=== PATIENT | male | born 1980 | race Caucasian/White ===

== ENCOUNTER 2023-09-02 14:56 | Outpatient (AMB) | payer BC, SELFPAY ==
[2023-09-02 15:18] VITALS: BP 132/74; PULSE 78; O2SAT 98; BMI 27.4
--- NOTE | 2023-09-02 15:18 | A.OFFPC_ITS ---
Vital Signs 09/02/23 15:18 Height 5 ft 10 in Weight 191 lb 3 oz BMI 27.4 BP 132/74 Blood Pressure Location Lt brachial Position Sitting Pulse 78 Pulse Source Pulse Oximeter Pulse Oximetry (%) 98 Oxygen Delivery Method Room Air Intake Visit Reasons: top lift nailer, requesting physical Intake Note: Patient is here as a new patient, looking to establish care. Allergies No Known Allergies Allergy (Verified 09/02/23 15:20) Tobacco use date assessed: 09/02/23 Dental Screening Dental Screen Date: 09/02/23 Did you have a dental visit in the last 12 months?: Yes Did you have a dental problem in the last 6 months where you did not have access to dental care?: No Was dental information given to patient?: Patient has dentist HPI top lift nailer, requesting physical HPI Details New Patient? ?? Prior PCP:Dutch Perry Last office visit/CPE:? None x 20 yrs Acute issue(s):? Est Care ?? PMHx:? Kidney stones. SurgHx:? None FHx:? Dad: Colon Polyps. Brother: Polyps MGF: CAD, [place] pGF: CardioPulm Fibrosis SocHx:? Nonsmoker, EtOH 2 Beers a week/ Occassionally. No drugs PFSH Medical History (Updated 09/02/23 @ 15:55 by Kev Nelson) Kidney stones Surgical History (Updated 09/02/23 @ 15:23 by Bridget Morejon CMA) No pertinent past surgical history Family History (Updated 09/02/23 @ 15:26 by Bridget Morejon CMA) Father Colorectal polyps Brother Colorectal polyps Social History (Updated 09/02/23 @ 15:30 by Bridget Morejon CMA) Household Members: Children Both parents involved: No Caregiver staying overnight: No Housing: House Are you a primary acute care nurse practitioner to a significant other at home: Yes Do you presently have visiting nurse or other home services: No Alcohol intake: current Alcohol intake frequency: other Alcohol type: beer and wine Patient Tobacco Use Status: Never used Tobacco e-Cigarette/Vaping Use: Never Used Special deni needs: No service: No Current occupational status: employed Current occupation: PRODUCTION OPERATIONS INSPECTOR of operations Cognitive needs: No Hearing needs: No Vision needs: Yes (Patient wears glasses.) Questionnaire PHQ-9 Over the last 2 weeks, how often have you been bothered by any of the following problems? 1. Little interest or pleasure in doing things: not at all 2. Feeling down, depressed, or hopeless: not at all 3. Trouble falling or staying asleep, or sleeping too much: not at all 4. Feeling tired or having little energy: not at all 5. Poor appetite or overeating: not at all 6. Feeling bad about yourself - or that you are a failure or have let yourself or your family down: not at all 7. Trouble concentrating on things, such as reading the newspaper or watching television: not at all 8. Moving or speaking so slowly that other people could have noticed. Or the opposite - being so fidgety or restless that you have been moving around a lot more than usual: not at all 9. Thoughts that you would be better off or of hurting yourself in some way: not at all Total score: 0 Depression Screening Interpretation: Negative Depression Screening Done: Yes 09304 - PHQ-9 Billing: Yes Source: Developed by Drs. Maximo Solorzano, Vijaya Clark, Mo Mccann and colleagues, with an educational shyann from [employer]. Thrive Questionnaire Date Thrive assessed: 09/02/23 I am a: Patient What is your living situation today?: I have a steady place to live Within the past 12 months, did the food you bought not last and you didn't have the money to get more?: Never true Within the past 12 months, did you worry whether your food would run out before you got money to buy more?: Never true Do you have trouble paying for medicines?: No Do you have trouble getting transportation to medical appointments?: No Do you have trouble paying your heating and electricity bill?: No Do you have trouble taking care of your child, family member or friend?: No Do you have trouble with day-to-day activities such as bathing, preparing meals, shopping, managing finances, etc.?: No Are you currently unemployed and looking for a job?: No Are you interested in more education?: No THRIVE Score: 0 MARIS-7 AMB Questionnaire MARIS-7 Date MARIS - 7 assessed: 09/02/23 Feeling nervous, anxious, or on edge: 1 = Several days Not being able to stop or control worryin = Not at all Worrying too much about different things: 0 = Not at all Trouble relaxin = Not at all Being so restless that it is hard to sit still: 0 = Not at all Becoming easily annoyed or irritable: 0 = Not at all Feeling afraid as if something awful might happen: 0 = Not at all Total MARIS-7 score (0-4 normal; 5-9 mild; 10-14 moderate; 15-21 severe): 1 Source: Developed by Drs. Maximo Solorzano, Vijaya Clark, Mo Mccann and colleagues, with an educational shyann from [employer]. MARIS-7 Assessment Billing MARIS-7 Assessment Tool: MARIS-7 Assessment 54018 Review of Systems Const Denies chills, Denies fatigue, Denies fever(s), Denies headache(s) and Denies weakness Eyes Denies change in vision ENT Denies dizziness and Denies headache(s) Card Denies chest pain, Denies lightheadedness, Denies dyspnea and Denies other (Palpitations) Resp Denies cough, Denies dyspnea, Denies wheezing and Denies other ( shortness of breath) GI Denies abdominal pain, Denies melena, Denies hematochezia, Denies change in bowel habits, Denies dyspepsia and Denies nausea Denies hematuria and Denies dysuria Musc Denies numbness and Denies tingling Skin/Breast Denies rash, Denies unusual bruising and Denies wounds Neuro Denies dizziness, Denies headache(s), Denies numbness, Denies Sensory deficit (Neuro), Denies tingling, Denies paresthesias and Denies weakness Psych Denies anxiety and Denies depression Endo Denies fatigue Noe/Lymph Denies easy bleeding and Denies easy bruising Aller/Immun Denies wheezing Physical exam (Primary Care) BMI result Body Mass Index 27.4 Tobacco/Smoking Status: Tobacco use Status Tobacco use date assessed 09/02/23 09/02/23 15:26 Patient Tobacco Use Status Never used Tobacco 09/02/23 15:30 e-Cigarette/Vaping Use Never Used 09/02/23 15:30 Depression Screening Interpretation: Negative Const General: no acute distress and well developed Nutritional Appearance: well nourished Orientation/consciousness: patient oriented x3 HENMT Head: Yes normocephalic and Yes atraumatic Ears: hearing grossly normal bilaterally and TM's normal bilaterally General nose exam: Normal external nose present and Normal nares present Mouth: Normal oral and palatal mucosa present and moist mucous membranes Teeth and gingiva: dentition normal Throat: Yes posterior oropharynx normal Eyes General: appearance normal, both eyes and all related structures Pupils: Equal, round and reactive pupils present EOM: EOMs intact bilaterally Neck Neck: Yes normal visual inspection, Yes no lymphadenopathy and Yes trachea midline Thyroid: Thyroid normal Carotids: no bruits Lymphatic: no lymphadenopathy noted Chest Chest palpation & inspection: normal inspection of the chest Resp Effort & Inspection: normal respiratory effort Auscultation: clear to auscultation bilaterally Cardio Rate: regular rate Rhythm: regular rhythm Heart sounds: S1 normal heart sound present, S2 normal heart sound present, no gallops, no murmurs and no rubs Bruits: no abdominal aortic bruits and no carotid bruits GI Palpation (GI): No Abdominal aortic bruit present, Soft to palpation, nontender, No hepatosplenomegaly present and No Rebound tenderness present Auscultation: normal bowel sounds General: Yes no CVA tenderness Back/Spine/Pelvis Back: no CVA tenderness Cervical Spine: cervical ROM normal and No Cervical spine tenderness Thoracic/Lumbar Spine: thoraco-lumbar ROM normal, No pain with thoraco-lumbar ROM, No thoracic spinal tenderness and No lumbar spinal tenderness Skin Other: L side of his nose 1/2 cm rounded, fleshy neoplasm L forearm melanotic lesion with irregular borders Lesions: lesions noted Rashes: no rashes Trauma: no lacerations or abrasions Wounds: no wounds Nails: normal Neuro General: patient oriented x3 and gait normal Cranial nerves: Yes Equal, round and reactive pupils present Cognition (Neuro): normal cognition Gait exam (Neuro): Normal gait present Motor exam (neuro): 5/5 motor strength present throughout Sensory Exam: No Sensory deficit (Neuro) Deep tendon reflexes (DTR's): Right patellar reflex intensity grade: 2+ and Left patellar reflex intensity grade: 2+ Extrem General: Yes normal to inspection and No edema Psych Appearance: grossly normal Affect: normal affect Attitude: cooperative Thought process: Normal thought process present Assessment and Plan Assessment & Plan (1) Adult general medical exam: Code(s): Z00.00 - Encounter for general adult medical examination without abnormal findings Plan: Patient?presents?as?new?patient?to?establish?care?and?for?complete?physical?exam Encouraged?healthy?diet?with?active?lifestyle?and?plenty?of?exercise (2) Change in hearing: Code(s): H91.90 - Unspecified hearing loss, unspecified ear Plan: May?have?subtle?hearing?loss?and?patient?notes?some?changes Will?refer?to?audiology (3) Neoplasm of uncertain behavior of skin: Code(s): D48.5 - Neoplasm of uncertain behavior of skin Plan: Rounded?fleshy?lump/neoplasm?at?left?side?of?nose Also?melanotic?lesion?with?irregular?borders?at?left?arm Referred?to?dermatology (4) Screening for prostate cancer: Code(s): Z12.5 - Encounter for screening for malignant neoplasm of prostate Plan: Check?PSA Orders: Orders Comprehensive Jamul. Panel Fast Today Z00.00 - Encounter for general adult medical examination without abnormal findings Lipid Panel Today Z00.00 - Encounter for general adult medical examination without abnormal findings UA and rflx microscopic Today Z00.00 - Encounter for general adult medical examination without abnormal findings AMB Hemoglobin A1c Today Z13.9 - Encounter for screening, unspecified Microalbumin, Random (w Creat) Today I10 - Essential (primary) hypertension Prostate Specific Antigen Scr Today Z12.5 - Encounter for screening for malignant neoplasm of prostate TSH reflex Free T4 Today Z00.00 - Encounter for general adult medical examination without abnormal findings Referrals Dermatology Referral D48.5 - Neoplasm of uncertain behavior of skin Audiology Referral H91.90 - Unspecified hearing loss, unspecified ear Coding Level of Care Code New Pt Level 3 (71844) New Pt Prev Care 40-64y(64947) Diagnoses Adult general medical exam Z00.00 Change in hearing H91.90 Neoplasm of uncertain behavior of skin D48.5 Screening for prostate cancer Z12.5 Additional Codes MARIS-7 Assessment Billing - MARIS-7 Assessment Tool: MARIS-7 Assessment 74550 ([id number])
== END 2023-09-02 15:56 | disposition home or self-care (01) ==
PROVIDERS: PCP Family Medicine; Visit Provider Family Medicine
DX: Z00.00 Encounter for general adult medical examination without abnormal findings (principal); H91.93 Unspecified hearing loss, bilateral; D48.5 Neoplasm of uncertain behavior of skin; Z12.5 Encounter for screening for malignant neoplasm of prostate
CPT/HCPCS: 99386

== ENCOUNTER 2024-04-10 15:07 | Outpatient (AMB) | payer BC, SELFPAY ==
[2024-04-10 15:12] VITALS: BP 138/88; PULSE 80; O2SAT 98; BMI 28.3
--- NOTE | 2024-04-10 15:12 | A.OFFVIS_ITS ---
Vital Signs 04/10/24 15:12 Height 5 ft 10 in Weight 197 lb 8.547 oz BMI 28.3 BP 138/88 Blood Pressure Location Rt brachial Position Sitting Pulse 80 Pulse Source Pulse Oximeter Pulse Oximetry (%) 98 Oxygen Delivery Method Room Air Intake Visit Reasons: Colonoscopy Screening Intake Note: NEW PATIENT Reason; Screening. Strong FMHx (Paternal) CRC Prior hx of colo/egd? N Concerns/Questions? No significant concerns per pt. Allergies No Known Allergies Allergy (Verified 04/10/24 15:12) HPI HPI Colonoscopy Screening: Details: 43 year old? male with no significant past medical history is here today for pre colonoscopy screening.? Patient was sent to us by his PCP.? This is his first colonoscopy screening.? Patient denies any gastrointestinal symptoms in the past or at present.? Family history of tubular adenoma no history of CRC. Patient's brother had polyps at age 43 as well as his dad.? Patient never had anesthesia in the past.? Negative for history of sleep apnea.? Denies any history of cardiac, renal, pulmonary, or hepatic disease.?? No history of infectious? diseases like hepatitis A, B, C, HIV or tuberculosis.? Patient is not on any anticoagulation [facility] Medical History Kidney stones Surgical History No pertinent past surgical history Family History Father Colorectal polyps Brother Colorectal polyps Social History Household Members: Children Both parents involved: No Caregiver staying overnight: No Housing: House Are you a primary wound care physician to a significant other at home: Yes Do you presently have visiting nurse or other home services: No Alcohol intake: current Alcohol intake frequency: other Alcohol type: beer and wine Patient Tobacco Use Status: Never used Tobacco e-Cigarette/Vaping Use: Never Used Special deni needs: No service: No Current occupational status: employed Current occupation: [employer] of operations Cognitive needs: No Hearing needs: No Vision needs: Yes (Patient wears glasses.) Review of Systems Const Denies weight gain and Denies weight loss ENT Reports no additional complaints, Denies dysphagia and Denies odynophagia Card Reports no additional complaints Resp Reports no additional complaints GI Denies abdominal pain, Denies belching, Denies melena, Denies bloating, Denies change in bowel habits, Denies dysphagia, Denies excessive flatus, Denies dyspepsia, Denies heartburn, Denies diarrhea, Denies loose stools, Denies nausea, Denies odynophagia and Denies vomiting Reports no additional complaints Musc Reports no additional complaints Neuro Reports no additional complaints Psych Reports no additional complaints Endo Reports no additional complaints Physical Exam Vital Signs: Last Vital Signs Pulse 80 04/10/24 15:12 BP 138/88 04/10/24 15:12 Pulse Ox 98 04/10/24 15:12 Oxygen Delivery Method Room Air 04/10/24 15:12 BMI result Body Mass Index 28.3 Const General: healthy appearing, no acute distress and well developed Nutritional Appearance: well nourished Orientation/consciousness: patient oriented x3 Resp Effort & Inspection: normal respiratory effort, able to speak in complete sentences, no tracheal deviation and symmetric chest movement Auscultation: clear to auscultation bilaterally Cardio Rate: regular rate GI Inspection: Yes normal to inspection and No distended Palpation (GI): Soft to palpation, not firm, nontender and No hepatosplenomegaly present Auscultation: normal bowel sounds General: Yes no CVA tenderness Back/Spine/Pelvis Back: no CVA tenderness Skin General skin exam: elasticity normal, turgor normal and dry skin Neuro General: patient oriented x3 Psych Appearance: grossly normal Mental Status: mental status grossly normal Assessment & Plan Assessment & Plan (1) Family history of colonic polyps: Code(s): Z83.719 - Family history of colon polyps, unspecified Category: Medical (2) Screen for colon cancer: Code(s): Z12.11 - Encounter for screening for malignant neoplasm of colon Plan Patient denies any GI, cardiac or respiratory symptoms.? Patient never had anesthesia in the past.? Denies any history of sleep apnea.? No history of infectious diseases in the past or present.? Not on any anticoagulation therapy.? Family history of tubular adenoma his brother was diagnosed with polyps at age 43. Patient denies melena, hematochezia, unintentional weight loss or ribbon like stools.? Discussed at length the pre-procedure,? prep, diet & medications as well as what to expect prior, during and after the procedure.?? Stressed the importance of good bowel prep.? Recommended the use of Vaseline or Calmoseptine OTC & baby wipes with bowel movements to promote comfort.? ?Patient verbalizes understanding and agrees to plan of care.? He was given the opportunity to ask questions and all questions answered.? We will see him after the procedure.? Medications: New polyethylene glycol 3350 (Miralax) As directed by [facility]ology [facility] at [facility] 238 grams PO ONCE 238 grams 0RF Z12.11 - Encounter for screening for malignant neoplasm of colon bisacodyl (Dulcolax (bisacodyl)) take 4 tabs at noon the day before your colonoscopy 20 mg (4 x 5 mg) PO ONCE 1 day 4 tabs 0RF Z12.11 - Encounter for screening for malignant neoplasm of colon Coding Level of Care Code New Pt Level 3 (03083) Diagnoses Family history of colonic polyps Z83.719 Screen for colon cancer Z12.11 Time Spent (min) 40 Comment 30 minutes spent with patient and additional 10 minutes spent reviewing his records
== END 2024-04-10 16:37 | disposition home or self-care (01) ==
PROVIDERS: PCP Family Medicine; Visit Provider Nurse Practitioner Family
DX: Z01.818 Encounter for other preprocedural examination (principal); Z12.11 Encounter for screening for malignant neoplasm of colon; Z83.719 Family history of colon polyps, unspecified
CPT/HCPCS: S0285

== ENCOUNTER 2024-08-06 07:05 | Day surgery (SDC) | payer BC, SELFPAY ==
[2024-08-04 12:26] VITALS: BMI 28.3
--- NOTE | 2024-08-05 09:39 | P.CONAN_ITS ---
Documented by User: Nichol Bacon NP 08/05/24 09:39 HPI - Anesthesia Eval Consult details Narrative: 43yo M for Colonoscopy PMFSH Active Problems Active Problems: All Active Problems Family history of colonic polyps (Acute) Neoplasm of uncertain behavior of skin (Acute) Screening for prostate cancer (Acute) Change in hearing (Acute) Adult general medical exam (Acute) Past Medical History Medical History Kidney stones Family History Family History Father Colorectal polyps Brother Colorectal polyps Surgical History Surgical History No pertinent past surgical history Social History Social History Household Members: Children Housing: House Are you a primary dialysis patient care technician to a significant other at home: No Do you presently have visiting nurse or other home services: No Alcohol intake: current Alcohol intake frequency: a few times a month Alcohol type: beer and wine Patient Tobacco Use Status: Never used Tobacco e-Cigarette/Vaping Use: Never Used Use of substances other than those prescribed or required for medical reasons: No Have you been hit, kicked, punched, or otherwise hurt by someone within the past year? If so, by whom?: No Special deni needs: No Are you DNR?: No Advance Directives: No Advance Directives Information Provided: No Advance Directives on File: No Poor oral hygiene: No service: No Current occupational status: employed Current occupation: MATHEMATICAL SCIENTIST of operations Cognitive needs: No Hearing needs: No Vision needs: Yes (Patient wears glasses.) Meds Allergies Allergy/AdvReac Type Severity Reaction Status Date / Time No Known Allergies Allergy Verified 08/06/24 07:12 Home Medications ?Medication ?Instructions ?Recorded ?Confirmed ?Last Taken ?Type No Known Home Meds 08/06/24 08/06/24 Unknown History Exam Height,Weight and Vital Signs: Height 5 ft 10 in Weight 89.358 kg Assessment and Plan Assessment Anesthesia Assessment: Chart Reviewed Documented by User: Severino Elliott MD 08/06/24 08:20 [facility] Past Medical History Medical History Kidney stones Family History Family History Father Colorectal polyps Brother Colorectal polyps Family history of problems with anesthesia: No Surgical History Surgical History No pertinent past surgical history History of Problems with Anesthesia: No Social History Social History Household Members: Children Housing: House Are you a primary dialysis patient care technician to a significant other at home: No Do you presently have visiting nurse or other home services: No Alcohol intake: current Alcohol intake frequency: a few times a month Alcohol type: beer and wine Patient Tobacco Use Status: Never used Tobacco e-Cigarette/Vaping Use: Never Used Use of substances other than those prescribed or required for medical reasons: No Have you been hit, kicked, punched, or otherwise hurt by someone within the past year? If so, by whom?: No Special deni needs: No Are you DNR?: No Advance Directives: No Advance Directives Information Provided: No Advance Directives on File: No Poor oral hygiene: No service: No Current occupational status: employed Current occupation: MATHEMATICAL SCIENTIST of operations Cognitive needs: No Hearing needs: No Vision needs: Yes (Patient wears glasses.) Meds Allergies Allergy/AdvReac Type Severity Reaction Status Date / Time No Known Allergies Allergy Verified 08/06/24 07:12 Home Medications ?Medication ?Instructions ?Recorded ?Confirmed ?Last Taken ?Type No Known Home Meds 08/06/24 08/06/24 Unknown History Exam Airway Mallampati Class: II TM Dist: >3cm Neck ROM: Full Loose/Missing/Broken Teeth: No Heart: ok Lungs: ok Assessment and Plan Assessment Anesthesia Assessment: Anesthesia Plan Discussed Final Anesthetic Review Family History of Problems with Anesthesia: No History of Problems with Anesthesia: No NPO: Yes ASA Class: II Final Preanesthetic Review: No Changes in Pt Med Stat, Meds/Allgs Chart Reviewed, Consent Obtained/Reviewed and Anes Risks/Benef Reviewed Patient Risk: Low Procedure Risk: Low Anesthetic Plan Anesthetic Plan: MAC: and Agree w/ Assess. and Plan Disposition: Standard PACU
[2024-08-06 07:18] VITALS: BP 129/85; PULSE 79; RESP 16; TEMP 36.8; O2SAT 98; BMI 27.6
[2024-08-06] MEDS: Lactated Ringers 1,000 ML 100 ML IVCONT (07:33)
--- NOTE | 2024-08-06 07:37 | MHC.SHP ---
Pre-Procedural Eval Section A - 24 Hr Update-Section A only Date of Service: 08/06/24 Section B - Complete if H&P > 30 days Chief Complaint: screening Relevant Family History (Specify if Yes): Yes Relevant Social History: None Present Medications: see Short Stay Collaborative assessment Medical History: Significant History ( Kidney stones) History of Previous Operations: No relevant previous surgery Allergies: Allergies Allergy/AdvReac Type Severity Reaction Status Date / Time No Known Allergies Allergy Verified 08/06/24 07:12 Review of Systems Sugical H&P ROS: Negative: Constitution, Cardiovascular, Respiratory, Neurological, Psychiatric, Hem-Onc, Allergic/Immunologic, Gastrointestinal, Genitourinary, Musculoskeletal, Integumentary, Endocrine and Eyes/Ears/Nose/Throat Exam Surgical H&P Exam: Normal: HEENT, Normal: Heart, Normal: Lungs, Normal: Extremities, Normal: Abdomen, Normal: Skin and Normal: Neurological Plan Diagnosis/Plan: Unchanged I have reviewed the history and physical and performed a pertinent physical examination on my patient. No changes have occurred unless specified. Time Spent With Patient Time: Total time managing care of this patient today ____ minutes.
--- NOTE | 2024-08-06 08:36 | P.OPN-COLO_ITS ---
Colonoscopy Operative Note Operative Note Date of Service: 08/06/24 Narrative: Operative Information Procedure Description: Colonoscopy Indication: FH of colon polyps Anesthesia: MAC COLONOSCOPY Instrument: Olympus variable stiffness pediatric scope 190L Colonoscopy Monitoring: Vital signs and clinical assessment, continuous EKG monitoring, Pulse oximetry, Carbon Dioxide monitoring and blood pressure monitoring were done throughout the procedure. Colon withdrawal time was 10 minutes. Procedure: The patient was placed in the left lateral decubitis position and pre-procedure medications were administered. After a digital rectal examination of the ano-rectum, the video colonoscope was inserted into the rectum and advanced through the colon to the cecum/TI. The colonoscope was slowly withdrawn in a retrograde panoramic fashion and the colon mucosa was carefully examined including a retroflexed view of the rectum. Findings and interventions are described below. Procedure Difficulty: moderate due to looping Findings: Terminal Ileum-not intubated Cecum: x 2 sessile polyps 5-6 mm removed with cold forceps Ascending Colon: normal Transverse Colon -normal Descending Colon:normal Sigmoid Colon: mild diverticulosis Rectum: Retroflexion with small internal hemorrhoids seen, grade I, 4-5 mm sessile polyp removed with cold snare Anorectum - normal Intervention: cold snare, cold forceps Colon preparation: [place] Bowel Preparation Scale Right colon; 2 Transverse colon: 2 Left colon; 2 (0 = Unprepared colon segment with mucosa not seen due to solid stool that cannot be cleared. 1 = Portion of mucosa of the colon segment seen, but other areas of the colon segment not well seen due to staining, residual stool and/or opaque liquid. 2 = Minor amount of residual staining, small fragments of stool and/or opaque liquid, but mucosa of colon segment seen well. 3 = Entire mucosa of colon segment seen well with no residual staining, small fragments of stool or opaque liquid) Impression and Post Procedure Diagnosis: diverticulosis colon polyps x 3 internal hemorrhoids Plan: High fiber diet leaflet Avoid straining at stool, epsom salts and sitz bath, anusol supps or cream Repeat Colonoscopy in 5 years due to FH of colonic polyps or earlier if clinically indicated Above findings were reviewed with the patient and relevant handouts were provided if indicated.
[2024-08-06 08:44] VITALS: BP 109/63; PULSE 77; RESP 18; TEMP 36.1; O2SAT 96
[2024-08-06 08:57] VITALS: BP 113/75; PULSE 70; RESP 18; TEMP 36.2; O2SAT 97
== END 2024-08-06 09:15 | disposition home or self-care (01) ==
PROVIDERS: PCP Family Medicine; Visit Provider Internal Medicine Gastroenterology
PROC: 0DJD8ZZ Inspection of Lower Intestinal Tract, Via Natural or Artificial Opening Endoscopic (ICD-10-PCS; CPT 45378; principal; 2024-08-06 08:30)
DX: Z12.11 Encounter for screening for malignant neoplasm of colon (principal); Z83.719 Family history of colon polyps, unspecified; D12.0 Benign neoplasm of cecum; K62.1 Rectal polyp; K57.30 Diverticulosis of large intestine without perforation or abscess without bleeding; K64.0 First degree hemorrhoids; N20.0 Calculus of kidney
CPT/HCPCS: 45380; 88305; J2003; J2704; J3010

== ENCOUNTER → 2024-08-06 07:05 | Outpatient (BNV) | payer BC, SELFPAY | PROVIDERS: PCP Family Medicine; Visit Provider Internal Medicine Gastroenterology | DX: D12.0 Benign neoplasm of cecum (principal); D12.8 Benign neoplasm of rectum; K64.0 First degree hemorrhoids; K57.30 Diverticulosis of large intestine without perforation or abscess without bleeding | CPT/HCPCS: 45380; 45385 ==